=== PATIENT | female | born 1940 | race Caucasian/White ===

== ENCOUNTER 2016-10-03 19:07 | Emergency (ER) | payer MEDICARE, BC ==
[~2016-10-03] VITALS: Ht 157.5 cm; Wt 61.4 kg
[2016-10-03] MEDS ORDERED: ONDANSETRON 2MG/ML, 2ML IVPush ONE (19:30)
[2016-10-03] MEDS ORDERED: SODIUM CHLORIDE FLUSH 10ML SYR IVF ONE ×2 (19:30→20:30)
[2016-10-03] MEDS ORDERED: MORPHINE SULFATE 4 MG/ML, 1ML ONE ×2 (19:37→21:03)
[2016-10-03] MEDS ORDERED: ONDANSETRON 2MG/ML, 2ML ONE (19:38)
[2016-10-03] MEDS: MORPHINE SULFATE 4 MG/ML, 1ML IVPush PRN ×2 (19:45→22:00)
[2016-10-03 20:02] LABS: ASPARTATE AMINO TRANSFERASE 23 U/L (15-37); BLOOD UREA NITROGEN 31 mg/dL (7-18)
[2016-10-03] MEDS ORDERED: KETOROLAC 30 MG/1 ML IVPush ONE (20:30)
[2016-10-03] MEDS ORDERED: SODIUM CHLORIDE 0.9% 1,000ML IV ONE (20:30)
[2016-10-03] MEDS ORDERED: KETOROLAC 30 MG/1 ML ONE (20:38)
[2016-10-03 22:19] VITALS: BP 132/61
== END 2016-10-03 22:28 | disposition home or self-care (01) ==
LOC: ED 22:22
DX: N13.2 Hydronephrosis with renal and ureteral calculous obstruction (principal); Z88.0 Allergy status to penicillin; Z88.1 Allergy status to other antibiotic agents; Z88.2 Allergy status to sulfonamides
CPT/HCPCS: 36415; 74176; 80053; 81001; 83690; 85025; 87086; 96361; 96374; 96375; 96376; 99285; J1885; J2405; J7030